=== PATIENT | male | born 1985 | race Caucasian/White ===

== ENCOUNTER 2019-04-28 06:05 | Emergency (ER) | payer BC ==
[~2019-04-28] VITALS: Ht 188 cm; Wt 158.8 kg
--- NOTE | 2019-04-28 06:29 | NUR ---
Patient ambulated with stable gait. A/Ox4. Speech clear, speaks in complete sentences. No neuro deficits. Patient came for c/o left sided flank pain since last PM. Pain 8/10. Sharp pain quality predominantly on the left side radiating to the back. Patient reports he was able to move his bowels early yesterday morning but has had difficulty since then. Respiratory even and unlabored, no cough no sob. No cardiovascular distress noted, all pulses palpable. Reports nausea, but denies any v/d
--- NOTE | 2019-04-28 06:33 | NUR ---
ERMD at bedside for MSE
[2019-04-28] MEDS ORDERED: ONDANSETRON 4 MG/2 ML VIAL IV ONE (06:45)
[2019-04-28] MEDS ORDERED: KETOROLAC TROMETHAMINE 15 MG INJ IVP ONE (06:45)
[2019-04-28] MEDS ORDERED: KETOROLAC TROMETHAMINE 30 MG INJ ONE (06:50)
[2019-04-28] MEDS ORDERED: ONDANSETRON 4 MG/2 ML VIAL ONE (06:51)
[2019-04-28 06:57] LABS: *BILIRUBIN,URIN NEGATIVE (NEGATIVE); *BLOOD, URINE 2+ (NEGATIVE); *CLARITY,URINE CLEAR (CLEAR); *COLOR,URINE LIGHT YELLOW (YELLOW); *KETONES,URINE NEGATIVE (NEGATIVE); *UROBILINOGEN,URINE 0.2 E.U./dl (NORMAL); LEUKOCYTE ESTERASE ,URINE NEGATIVE (NEGATIVE); NITRITE, URINE NEGATIVE (NEGATIVE); UGLUCOSE NEGATIVE (NEGATIVE)
[2019-04-28 06:59] LABS: BASOPHILS # (AUTO) 0.1 K/uL (0.0-8.0); BASOPHILS % (AUTO) 0.6 % (0.0-2.0); EOSINOPHILS # (AUTO) 0.1 K/uL (0.0-0.7); EOSINOPHILS % (AUTO) 1.3 % (0.0-7.0); HEMATOCRIT 40.7 % (36.7-47.1); HEMOGLOBIN 13.6 g/dL (12.5-16.3); LYMPHOCYTES # (AUTO) 1.3 K/uL (20.0-40.0); LYMPHOCYTES % (AUTO) 12.2 % (20.5-51.5); MEAN CORPUSCULAR HEMOGLOBIN 27.3 uug (23.8-33.4); MEAN CORPUSCULAR HGB CONC 34 g/dL (32.5-36.3); MEAN CORPUSCULAR VOLUME 81.6 fL (73.0-96.2); MONOCYTES # (AUTO) 0.7 K/uL (2.0-10.0); MONOCYTES % (AUTO) 6.9 % (0.0-11.0); NEUTROPHILS # (AUTO) 8.6 K/uL (1.8-8.9); PLATELET COUNT (AUTO) 286 K/uL (152-348); RED BLOOD CELL COUNT(AUTO) 4.99 MIL/uL (4.06-5.63); WHITE BLOOD COUNT (AUTO) 10.9 K/uL (3.6-10.2)
[2019-04-28 07:05] LABS: BACTERIA,URINE NONE SEEN /HPF (NONE SEEN); SQUAMOUS EPITHELIAL CELL,UR NONE SEEN /HPF (NONE SEEN); WBC,URINE 0-3 /HPF (0-3)
[2019-04-28] MEDS ORDERED: metformin PO (07:12)
[2019-04-28] MEDS ORDERED: LISI-603 PO (07:12)
[2019-04-28] MEDS ORDERED: tricor PO (07:12)
[2019-04-28 07:15] LABS: BILIRUBIN,DIRECT 0.1 mg/dL (0.0-0.2); BILIRUBIN,TOTAL 0.4 mg/dL (0.2-1.0); CREATININE 1.3 mg/dL (0.6-1.3); POTASSIUM 4.2 mmol/L (3.5-5.1); TOTAL PROTEIN, SERUM 7.1 g/dL (6.4-8.2)
--- NOTE | 2019-04-28 07:18 | NUR ---
RECEIVED SHIFT REPORT FROM BISI Gross RN. PT RESTING IN BED AT THIS TIME.
--- NOTE | 2019-04-28 07:29 | NUR ---
BHAVANA HARRISON AT BEDSIDE FOR PT UPDATE.
--- NOTE | 2019-04-28 07:47 | NUR ---
Patient discharged to home in stable conditon. Written and verbal after care instructions given. Patient verbalizes understanding of instructions. ALL BELONGINGS W/ PT. PT SELF-AMBULATED W/O DIFFICULTY. 20G IV ACCESS IN L HAND REMOVED PRIOR TO D/C - INNER CANNULA INTACT.
[2019-04-28 07:48] VITALS: BP 156/77
== END 2019-04-28 07:49 | disposition home or self-care (01) ==
LOC: ER 06:12
DX: R31.9 Hematuria, unspecified (principal); E11.9 Type 2 diabetes mellitus without complications; Z79.899 Other long term (current) drug therapy
CPT/HCPCS: 36415; 80048; 80076; 81000; 81001; 83690; 85025; 96374; 96375; 99283; J1885; J2405; A4663